=== PATIENT | male | born 1960 | race African-American/Black ===

== ENCOUNTER 2017-05-10 08:12 | Emergency (ER) | payer MEDICAID, OTHER ==
[~2017-05-10] VITALS: Ht 172.7 cm; Wt 80.0 kg
[~2017-05-10 08:12] MED LIST: ATIVAN; HALDOL; SEROQUEL; WELLBUTRIN
[2017-05-10] MEDS ORDERED: LORAZEPAM 2MG/ML CPJ IV STA (08:38)
[2017-05-10] MEDS ORDERED: SODIUM CHLORIDE 0.9% 1,000 ML IV ONE (08:38)
[2017-05-10 09:12] LABS: CLARITY URINE CLEAR (CLEAR); COLOR URINE YELLOW (YELLOW); KETONES URINE NEGATIVE (NEGATIVE); LEUKOCYTE ESTERASE URINE NEGATIVE (NEGATIVE); NITRITE URINE NEGATIVE (NEGATIVE); OCCULT BLOOD URINE NEGATIVE (NEGATIVE); PROTEIN URINE TRACE (NEGATIVE); UROBILINOGEN URINE 0.2 E.U./dL (0.2-1.0)
[2017-05-10 09:14] LABS: CHLORIDE 104 mEq/L (98-107); ETHANOL BLOOD 151 mg/dL; HEMATOCRIT. 43.8 % (42.0-52.0); HEMOGLOBIN. 14.6 g/dL (14.0-18.0); MEAN CORPUSCULAR HEMOGLOBIN 30.2 pg (28.0-32.0); MEAN CORPUSCULAR VOLUME 90.9 fL (80.0-94.0); MEAN PLATELET VOLUME 7.7 fl (7.4-10.4); PLATELET 226 x1000/uL (130-400); RED BLOOD CELL COUNT 4.82 mill/uL (4.7-6.1)
[2017-05-10 09:41] LABS: *AMPHETAMINES SCREEN URINE NEGATIVE (NEGATIVE); *BARBITURATES SCREEN URINE NEGATIVE (NEGATIVE); *BENZODIAZEPINES SCREEN URINE NEGATIVE (NEGATIVE); *COCAINE SCREEN URINE PRESUMTIVE POSITIVE (NEGATIVE); CANNABINOID URINE SCREEN PRESUMTIVE POSITIVE (NEGATIVE); METHADONE URINE SCREEN NEGATIVE (NEGATIVE); OPIATES URINE SCREEN NEGATIVE (NEGATIVE); PHENCYCLIDINE URINE SCREEN NEGATIVE (NEGATIVE)
[2017-05-10 09:51] LABS: PLATELET ESTIMATE NORMAL
[2017-05-10 11:32] VITALS: BP 140/60
== END 2017-05-10 11:32 | disposition home or self-care (01) ==
LOC: ER 08:22
DX: F19.10 Other psychoactive substance abuse, uncomplicated (principal); F12.10 Cannabis abuse, uncomplicated; F41.9 Anxiety disorder, unspecified; F32.9 Major depressive disorder, single episode, unspecified
CPT/HCPCS: 36415; 80053; 80305; 81003; 85025; 93005; 96361; 96374; 99285; G0482; J2060; J7030; Z7610

== ENCOUNTER 2018-03-14 09:03 | Inpatient (IN) | payer MEDICAID ==
[~2018-03-14] VITALS: Ht 177.8 cm; Wt 85.7 kg
[2018-03-14] MEDS ORDERED: HALOPERIDOL LACTATE 5MG/ML VIAL IM STA (09:33)
[2018-03-14] MEDS ORDERED: LORAZEPAM 2MG/ML CPJ IV STA (09:33)
[2018-03-14] MEDS ORDERED: SODIUM CHLORIDE 0.9% 1,000 ML IV ONE ×2 (09:33→11:15)
[2018-03-14 09:54] LABS: HEMATOCRIT. 47.9 % (42.0-52.0); HEMOGLOBIN. 15.7 g/dL (14.0-18.0); MEAN CORPUSCULAR VOLUME 91.2 fL (80.0-94.0); MEAN PLATELET VOLUME 7.8 fl (7.4-10.4); PLATELET 287 x1000/uL (130-400); RED BLOOD CELL COUNT 5.25 mill/uL (4.7-6.1); RED CELL DISTRIBUTION WIDTH 14.1 % (11.6-14.6)
[2018-03-14 10:01] LABS: CHLORIDE 107 mEq/L (98-107)
[2018-03-14 10:05] LABS: ETHANOL BLOOD 31 mg/dL
[2018-03-14 10:14] LABS: PLATELET ESTIMATE NORMAL
[2018-03-14 10:58] LABS: CLARITY URINE CLOUDY (CLEAR); COLOR URINE DARK YELLOW (YELLOW); KETONES URINE TRACE (NEGATIVE); LEUKOCYTE ESTERASE URINE NEGATIVE (NEGATIVE); NITRITE URINE NEGATIVE (NEGATIVE); OCCULT BLOOD URINE TRACE (NEGATIVE); PROTEIN URINE 1+ (NEGATIVE); SPECIFIC GRAVITY URINE 1.028 (1.005-1.030); UROBILINOGEN URINE 0.2 E.U./dL (0.2-1.0)
[2018-03-14 11:44] LABS: CREATINE KINASE 3692 IU/L (39-308)
[2018-03-14] MEDS ORDERED: SODIUM BICARBONATE 150 MEQ in DEXTROSE 5% WATER 1,000 ML IV SCH (12:00)
[2018-03-14 12:46] LABS: *AMPHETAMINES SCREEN URINE PRESUMTIVE POSITIVE (NEGATIVE); *BARBITURATES SCREEN URINE NEGATIVE (NEGATIVE); *BENZODIAZEPINES SCREEN URINE PRESUMTIVE POSITIVE (NEGATIVE)
[2018-03-14 12:48] LABS: *COCAINE SCREEN URINE PRESUMTIVE POSITIVE (NEGATIVE); CANNABINOID URINE SCREEN PRESUMTIVE POSITIVE (NEGATIVE); METHADONE URINE SCREEN NEGATIVE (NEGATIVE); OPIATES URINE SCREEN NEGATIVE (NEGATIVE); PHENCYCLIDINE URINE SCREEN NEGATIVE (NEGATIVE)
[2018-03-14] MEDS ORDERED: IPRATROPIUM/ALBUTEROL 0.5-3(2.5)MG/3ML NEB INH PRN (15:15)
[2018-03-14] MEDS ORDERED: MAGNESIUM/ALUMINUM HYDROXIDE/SIMETHICONE 30ML UDC PO PRN (15:15)
[2018-03-14] MEDS ORDERED: ONDANSETRON HCL 4MG/2ML INJ IV PRN (15:15)
[2018-03-14] MEDS ORDERED: ACETAMINOPHEN 650MG/20.3ML UDC GT PRN (15:15)
[2018-03-14] MEDS ORDERED: CLONIDINE 0.1MG TABLET PO PRN (15:15)
[2018-03-14 16:45] VITALS: BP 131/82
[2018-03-14 16:46] VITALS: BP 131/82
[2018-03-14] MEDS: ENOXAPARIN 40MG/0.4ML SYR SUBCUT SCH (17:00)
[2018-03-14] MEDS ORDERED: SODIUM CHLORIDE 0.9% 500 ML IV ONE ×2 (17:00→17:30)
[2018-03-14] MEDS: PANTOPRAZOLE SODIUM 40 MG/VIAL IV SCH (17:44)
[2018-03-14 17:45] VITALS: BP 147/52
[2018-03-14] MEDS ORDERED: MVI, ADULT NO.1 10 ML, FOLIC ACID 1 MG, THIAMINE HCL 100 MG in SODIUM CHLORIDE 0.9% 1,0... IV ONE ×4 (18:00)
[2018-03-14 20:00] VITALS: BP 149/94
[2018-03-14 22:00] VITALS: BP 137/93
[2018-03-14] MEDS: CHLORDIAZEPOXIDE 25MG CAPSULE PO SCH (22:37)
[2018-03-15] VITALS (12 sets, daily range): BP systolic 123–163; BP diastolic 76–95
[2018-03-15] MEDS: SODIUM CHLORIDE 0.45% 1,000 ML IV SCH ×3 (04:10→18:00)
[2018-03-15 06:42] LABS: BASOPHILS % 0.8 % (0.0-2.0); EOSINOPHILS % 3.6 % (0.0-5.0); HEMATOCRIT. 38.3 % (42.0-52.0); HEMOGLOBIN. 13.1 g/dL (14.0-18.0); MEAN CORPUSCULAR HEMOGLOBIN 31.1 pg (28.0-32.0); MEAN CORPUSCULAR VOLUME 90.9 fL (80.0-94.0); MEAN PLATELET VOLUME 7.9 fl (7.4-10.4); MONOCYTES % 8.6 % (2.0-8.0); PLATELET 162 x1000/uL (130-400); RED BLOOD CELL COUNT 4.21 mill/uL (4.7-6.1)
[2018-03-15 06:54] LABS: CHLORIDE 107 mEq/L (98-107)
[2018-03-15 07:03] LABS: PHOSPHORUS 2.3 mg/dL (2.5-4.9)
[2018-03-15 07:10] LABS: CREATINE KINASE MB FRACTION 13.2 ng/mL (0.5-3.6)
[2018-03-15] MEDS: PANTOPRAZOLE SODIUM 40 MG/VIAL IV SCH (08:40)
[2018-03-15] MEDS: CHLORDIAZEPOXIDE 25MG CAPSULE PO SCH ×2 (08:40→16:02)
[2018-03-15 09:51] LABS: CREATINE KINASE 1922 IU/L (39-308)
[2018-03-15] MEDS ORDERED: POTASSIUM PHOS,M-BASIC-D-BASIC 15 MMOL in DEXT 5% WATER 245 ML IV NR (10:00)
[2018-03-15] MEDS: FOLIC ACID/VITAMIN B COMP W-C TABLET PO SCH (10:30)
[2018-03-15] MEDS: THIAMINE HCL 100MG TABLET PO SCH (10:30)
[2018-03-15] MEDS: LORAZEPAM 2MG/ML CPJ IV PRN ×2 (11:08→15:46)
[2018-03-15 15:58] LABS: CREATINE KINASE MB FRACTION 8.6 ng/mL (0.5-3.6)
[2018-03-15] MEDS: ENOXAPARIN 40MG/0.4ML SYR SUBCUT SCH (16:02)
[2018-03-15] MEDS ORDERED: QUETIAPINE FUMARATE 100MG TABLET PO SCH (21:00)
[2018-03-16] VITALS (11 sets, daily range): BP systolic 132–182; BP diastolic 78–95
[2018-03-16] MEDS: SODIUM CHLORIDE 0.45% 1,000 ML IV SCH ×2 (01:42→09:24)
[2018-03-16 06:59] LABS: BASOPHILS % 1.1 % (0.0-2.0); HEMATOCRIT. 37.8 % (42.0-52.0); LYMPHOCYTES % 22.6 % (20.0-50.0); MEAN CORPUSCULAR HEMOGLOBIN 31.2 pg (28.0-32.0); MEAN CORPUSCULAR VOLUME 90.9 fL (80.0-94.0); MEAN PLATELET VOLUME 7.8 fl (7.4-10.4); MONOCYTES % 8.8 % (2.0-8.0); NEUTROPHILS % 63.5 % (40.0-76.0); PLATELET 145 x1000/uL (130-400); RED BLOOD CELL COUNT 4.16 mill/uL (4.7-6.1); RED CELL DISTRIBUTION WIDTH 13.6 % (11.6-14.6)
[2018-03-16 07:12] LABS: CHLORIDE 106 mEq/L (98-107)
[2018-03-16] MEDS: FOLIC ACID/VITAMIN B COMP W-C TABLET PO SCH (07:51)
[2018-03-16] MEDS: CHLORDIAZEPOXIDE 25MG CAPSULE PO SCH (07:51)
[2018-03-16] MEDS: THIAMINE HCL 100MG TABLET PO SCH (07:51)
[2018-03-16] MEDS ORDERED: FAMOTIDINE 20MG/2ML VIAL IV SCH (09:00)
[2018-03-16] MEDS ORDERED: BUPROPION HCL 150MG TABLET XL 24HR PO SCH (09:00)
[2018-03-16] MEDS: LORAZEPAM 2MG/ML CPJ IV PRN (09:24)
[2018-03-16] MEDS ORDERED: ACETAMINOPHEN 325MG TABLET PO PRN (10:45)
[2018-03-16] MEDS ORDERED: ACETAMINOPHEN 650MG/20.3ML UDC PO PRN (15:15)
== END 2018-03-16 15:30 | disposition left against medical advice (07) | DRG 816 ==
LOC: ER 09:03 → 3WST 13:07 → EDBEDREQ 13:18 → ENRESERV 14:31 → 3WST 21:05
PROVIDERS: ADMIT Family Medicine Adult Medicine; ATTEND Family Medicine Adult Medicine
DX: T40.5X1A Poisoning by cocaine, accidental (unintentional), initial encounter (principal); N17.9 Acute kidney failure, unspecified; I42.9 Cardiomyopathy, unspecified; M62.82 Rhabdomyolysis; T42.4X1A Poisoning by benzodiazepines, accidental (unintentional), initial encounter; T40.7X1A Poisoning by cannabis (derivatives), accidental (unintentional), initial encounter; F32.9 Major depressive disorder, single episode, unspecified; F41.9 Anxiety disorder, unspecified; I10 Essential (primary) hypertension; Y90.1 Blood alcohol level of 20-39 mg/100 ml; F19.90 Other psychoactive substance use, unspecified, uncomplicated; Z53.21 Procedure and treatment not carried out due to patient leaving prior to being seen by health care provider; Y92.89 Other specified places as the place of occurrence of the external cause; Z79.899 Other long term (current) drug therapy; T43.641A Poisoning by ecstasy, accidental (unintentional), initial encounter; T43.621A Poisoning by amphetamines, accidental (unintentional), initial encounter
CPT/HCPCS: 36415; 71045; 73030; 80048; 80305; 80307; 80329; 82550; 82553; 83735; 84100; 84443; 84484; 93005; 93306; 93970; 96361; 96372; 96374; 99285; C9113; G0482; J1630; J1650; J2060; J3411; J3490; J7030; J7040; J7060; J7070

== ENCOUNTER 2018-03-17 17:38 | Emergency (ER) | payer MEDICAID ==
[~2018-03-17] VITALS: Ht 180.3 cm; Wt 89.0 kg
[2018-03-17] MEDS ORDERED: LORAZEPAM 1MG TABLET PO ONE (19:00)
[2018-03-17] MEDS ORDERED: QUETIAPINE FUMARATE 25MG TABLET PO ONE (19:00)
[2018-03-17 22:55] LABS: *AMPHETAMINES SCREEN URINE PRESUMTIVE POSITIVE (NEGATIVE); *BARBITURATES SCREEN URINE NEGATIVE (NEGATIVE); *BENZODIAZEPINES SCREEN URINE PRESUMTIVE POSITIVE (NEGATIVE); *COCAINE SCREEN URINE PRESUMTIVE POSITIVE (NEGATIVE); CANNABINOID URINE SCREEN NEGATIVE (NEGATIVE); METHADONE URINE SCREEN NEGATIVE (NEGATIVE); OPIATES URINE SCREEN NEGATIVE (NEGATIVE); PHENCYCLIDINE URINE SCREEN NEGATIVE (NEGATIVE)
[2018-03-17 23:50] LABS: BASOPHILS % 0.8 % (0.0-2.0); HEMATOCRIT. 40.5 % (42.0-52.0); HEMOGLOBIN. 13.6 g/dL (14.0-18.0); LYMPHOCYTES % 21.2 % (20.0-50.0); MEAN CORPUSCULAR HEMOGLOBIN 30.4 pg (28.0-32.0); MEAN CORPUSCULAR VOLUME 90.7 fL (80.0-94.0); MEAN PLATELET VOLUME 7.7 fl (7.4-10.4); MONOCYTES % 8.7 % (2.0-8.0); NEUTROPHILS % 66.3 % (40.0-76.0); PLATELET 172 x1000/uL (130-400); RED BLOOD CELL COUNT 4.47 mill/uL (4.7-6.1); RED CELL DISTRIBUTION WIDTH 13.8 % (11.6-14.6)
[2018-03-17 23:58] LABS: CHLORIDE 104 mEq/L (98-107)
[2018-03-18 00:09] LABS: ETHANOL BLOOD < 10 mg/dL
[2018-03-18] MEDS ORDERED: QUETIAPINE FUMARATE 25MG TABLET PO SCH (19:30)
[2018-03-18] MEDS ORDERED: QUETIAPINE FUMARATE 100MG TABLET PO SCH (21:30)
[2018-03-19] MEDS ORDERED: CLONAZEPAM 1MG TABLET PO ONE (07:15)
[2018-03-19] MEDS ORDERED: BUPROPION HCL 100MG TABLET PO ONE (07:15)
[2018-03-19] MEDS ORDERED: QUETIAPINE FUMARATE 100MG TABLET PO SCH (07:15)
[2018-03-20 06:51] VITALS: BP 115/66
== END 2018-03-20 10:05 | disposition home or self-care (01) ==
LOC: ER 17:38
DX: R45.851 Suicidal ideations (principal); F41.9 Anxiety disorder, unspecified; F32.9 Major depressive disorder, single episode, unspecified
CPT/HCPCS: 36415; 80053; 80305; 80307; 80329; 85025; 93005; 99284; G0482

== ENCOUNTER 2018-03-27 05:15 | Emergency (ER) | payer MEDICAID ==
[~2018-03-27] VITALS: Ht 170.2 cm; Wt 80.0 kg
[2018-03-27] MEDS ORDERED: ACETAMINOPHEN 325MG TABLET PO ONE (07:00)
[2018-03-27 11:44] VITALS: BP 124/88
== END 2018-03-27 11:45 | disposition home or self-care (01) ==
LOC: ER 05:15
DX: M25.562 Pain in left knee (principal); L03.116 Cellulitis of left lower limb; F41.9 Anxiety disorder, unspecified; F15.10 Other stimulant abuse, uncomplicated; F31.9 Bipolar disorder, unspecified; F17.200 Nicotine dependence, unspecified, uncomplicated; F12.10 Cannabis abuse, uncomplicated; F14.90 Cocaine use, unspecified, uncomplicated
CPT/HCPCS: 73562; 99283

== ENCOUNTER 2020-07-07 09:10 | Emergency (ER) | payer MEDICAID ==
[~2020-07-07] VITALS: Ht 177.8 cm; Wt 95.3 kg
[2020-07-07] MEDS ORDERED: HALOPERIDOL LACTATE 5MG/ML VIAL IM STA (09:24)
[2020-07-07] MEDS ORDERED: LORAZEPAM 2MG/ML CPJ IM STA (09:24)
[2020-07-07 09:57] LABS: EOSINOPHILS % 0.3 % (0.0-5.0); HEMATOCRIT. 43.9 % (42.0-52.0); LYMPHOCYTES % 8.8 % (20.0-50.0); MEAN CORPUSCULAR HEMOGLOBIN 30.9 pg (28.0-32.0); MEAN CORPUSCULAR VOLUME 90.3 fL (80.0-94.0); MONOCYTES % 8.7 % (2.0-8.0); NEUTROPHILS % 81.2 % (40.0-76.0); PLATELET 234 x1000/uL (130-400); RED BLOOD CELL COUNT 4.86 mill/uL (4.7-6.1); RED CELL DISTRIBUTION WIDTH 13.6 % (11.6-14.6)
[2020-07-07 10:02] LABS: CHLORIDE 104 mEq/L (98-107)
[2020-07-07 10:06] LABS: ETHANOL BLOOD < 10 mg/dL
[2020-07-07 11:34] LABS: CLARITY URINE CLEAR (CLEAR); COLOR URINE YELLOW (YELLOW); KETONES URINE NEGATIVE (NEGATIVE); LEUKOCYTE ESTERASE URINE NEGATIVE (NEGATIVE); NITRITE URINE NEGATIVE (NEGATIVE); OCCULT BLOOD URINE NEGATIVE (NEGATIVE); PH URINE 5.5 (4.5-8.0); PROTEIN URINE NEGATIVE (NEGATIVE); SPECIFIC GRAVITY URINE 1.004 (1.005-1.030); UROBILINOGEN URINE 0.2 E.U./dL (0.2-1.0)
[2020-07-07 11:54] LABS: *AMPHETAMINES SCREEN URINE NEGATIVE (NEGATIVE); *BARBITURATES SCREEN URINE NEGATIVE (NEGATIVE); *BENZODIAZEPINES SCREEN URINE NEGATIVE (NEGATIVE); *COCAINE SCREEN URINE PRESUMTIVE POSITIVE (NEGATIVE); METHADONE URINE SCREEN NEGATIVE (NEGATIVE); OPIATES URINE SCREEN NEGATIVE (NEGATIVE)
[2020-07-07 11:55] LABS: CANNABINOID URINE SCREEN NEGATIVE (NEGATIVE); PHENCYCLIDINE URINE SCREEN NEGATIVE (NEGATIVE)
[2020-07-07 12:00] VITALS: BP 155/101
== END 2020-07-07 15:27 | disposition home or self-care (01) ==
LOC: ER 09:10
DX: F91.8 Other conduct disorders (principal); F31.9 Bipolar disorder, unspecified; F41.9 Anxiety disorder, unspecified; F15.10 Other stimulant abuse, uncomplicated; F17.210 Nicotine dependence, cigarettes, uncomplicated; F16.10 Hallucinogen abuse, uncomplicated; Z78.1 Physical restraint status
CPT/HCPCS: 36415; 80053; 80305; 80320; 81003; 85025; 93005; 96372; 99284; J1630; J2060; G0480